=== PATIENT | female | born 1975 | race Caucasian/White ===

== ENCOUNTER → 2022-03-09 | Outpatient (CLI) | payer BC ==
--- NOTE | 2022-03-09 15:15 | RAD ---
Left lower extremity venous duplex study 03/09/2022 Clinical History: Lower extremity pain Technique: Using a combination of real time ultrasound imaging and color-flow and pulse Doppler imagi ng techniques, including spectral analysis, graded compression and augmentation, duplex evaluation of the deep venous system of the left lower extremity was performed. Multiple images were obtained. Findings: Exam is positive for deep venous thrombosis involving inferior superficial femoral vein, po pliteal vein, posterior tibial veins. Proximal superficial femoral vein and the saphenofemoral juncti on are patent. IMPRESSION: Exam positive for left lower extremity DVT as described above. The ordering physician's office was notified of these findings by cardiac cath lab technologist at the carli e of exam. Electronically signed by: Hardik Myers MD (03/09/2022 3:13 PM) [id number]
== END ==
LOC: US 14:13
PROVIDERS: ATTEND Internal Medicine
DX: I82.402 Acute embolism and thrombosis of unspecified deep veins of left lower extremity (principal); R20.0 Anesthesia of skin; R20.2 Paresthesia of skin
CPT/HCPCS: 93971